=== PATIENT | female | born 1970 | race Caucasian/White ===

== ENCOUNTER → 2017-08-04 | Outpatient (CLI) | payer OTHER ==
--- NOTE | 2017-08-04 14:48 | RAD ---
CT of the abdomen and pelvis without contrast, 08/04/2017: History: Left flank pain Noncontrast scans were obtained through the urinary tract utilizing the renal stone protocol. No intrarenal calculi are identified. The right renal collecting system and right ureter are not dilated. On the left there is mild perinephric and periureteral edema. The left renal collecting system and left ureter are mildly dilated. There is a 5 mm obstructing calculus in the distal left ureter located approximately 2 cm superior to the level of the vesicoureteral junction. The partially filled urinary bladder is unremarkable. The unopacified liver is at the upper limits of normal in size. No hepatic mass or bile duct dilatation is seen. The gallbladder is unremarkable. No pancreatic abnormality is seen. The spleen is of normal size. There is minimal aortoiliac calcific plaquing. No abdominal or pelvic adenopathy is seen. The uterus is surgically absent. The bowel loops are not dilated. The appendix contains a small amount of radiopaque material. There is no evidence of appendiceal inflammation. No free fluid or free air is evident in the abdomen or pelvis. IMPRESSION: 5 mm obstructing distal left ureteral calculus with associated perinephric edema. PQRS Compliance Statement: One or more of the following individualized dose reduction techniques were utilized for this examination: 1. Automated exposure control 2. Adjustment of the mA and/or kV according to patient size 3. Use of iterative reconstruction technique
== END | disposition home or self-care (01) ==
LOC: CT 13:57
PROVIDERS: ATTEND Emergency Medicine
DX: N20.1 Calculus of ureter (principal)
CPT/HCPCS: 74176

== ENCOUNTER → 2017-08-05 | Outpatient (CLI) | payer OTHER ==
--- NOTE | 2017-08-05 08:54 | RAD ---
Indication right-sided abdominal pain and flank pain. A single KUB was obtained. Note is made of the CT examination of the abdomen and pelvis yesterday demonstrating a calculus in the distal left ureter. There is a density in the left pelvis which would be compatible with the calculus seen on the CT examination yesterday. The abdominal gas pattern is normal
== END | disposition home or self-care (01) ==
LOC: RAD 08:22
PROVIDERS: ATTEND Urology
DX: N20.2 Calculus of kidney with calculus of ureter (principal)
CPT/HCPCS: 74000

== ENCOUNTER → 2019-11-20 | Outpatient (CLI) | payer OTHER ==
--- NOTE | 2019-11-20 17:51 | KCIC ---
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 COMPARISON: None FINDINGS: Both lobes of the thyroid are diffusely and markedly heterogeneous. Right thyroid: Measures 7.8 x 2.6 x 2.1 cm intact vascularity is identified at the right lobe. Solid appearing nodule at the upper pole of the right thyroid measures 11 x 8 x 5 mm. Solid appearing nodule at the lower pole measures 14 x 11 x 11 mm. Mild peripheral vascularity about both of these nodules on the right. Isthmus: 7 mm thick and heterogeneous. Left thyroid: Measures 7.6 x 3.1 x 1.8 cm. Large solid appearing nodule at the lower pole measures 4.6 x 2.5 x 2.6 cm. There is some peripheral as well as internal vascularity within this nodule. Intact vascularity is identified within the left lobe of the thyroid. IMPRESSION: Markedly heterogeneous thyroid. Bilateral thyroid masses, with a dominant mass of the left lower pole measuring 4.6 cm. Nature uncertain but potentially malignant. Electronically signed by: Edwin Davila MD (11/20/2019 5:48 PM) [facility]
== END | disposition home or self-care (01) ==
LOC: KCIC US 15:31
PROVIDERS: ATTEND Family Medicine
DX: E04.2 Nontoxic multinodular goiter (principal); E07.89 Other specified disorders of thyroid
CPT/HCPCS: 76536

== ENCOUNTER 2019-12-20 06:02 | Observation (INO) | payer OTHER ==
[~2019-12-20] VITALS: Ht 162.6 cm; Wt 82.0 kg
[2019-12-20] VITALS (11 sets, daily range): BP systolic 107–128; BP diastolic 42–77
[~2019-12-20 06:02] MED LIST: ACET325T9 PO; BISA5TAB4 PO; CETI10TA24 PO; CHOL500062 PO; CRESTOR40 MG PO; DIPH25CA58 PO; GABA300C18 PO; GLUC1CAP48 PO; IBUP-1060 PO; LACT1CAP29 PO; LISI-338 PO; METF750T39 PO; MULT1CAP15 PO; NAPR220C4 PO; TRAM50TA PO; [UNRECOGNIZED DRUG - OTHER] PO
[2019-12-20] MEDS ORDERED: ROCURONIUM 50 MG/5 ML VIAL. ONE (06:22)
[2019-12-20] MEDS ORDERED: fentaNYL PF VIAL 100 MCG/2 ML VIAL ONE ×2 (06:22→10:42)
[2019-12-20] MEDS ORDERED: SUCCINYLCHOLINE 200 MG/10 ML VIAL. ONE (06:22)
[2019-12-20] MEDS ORDERED: DEXAMETHASONE SOD PHOS 4 MG/ML VIAL ONE (06:23)
[2019-12-20] MEDS ORDERED: PROPOFOL 20 ML IV ONE (06:23)
[2019-12-20] MEDS ORDERED: SEVOFLURANE 61 TO 120 MINUTES. IH ONE (06:23)
[2019-12-20] MEDS ORDERED: ONDANSETRON PF 4 MG/2 ML VIAL. ONE (06:23)
[2019-12-20] MEDS ORDERED: LIDOCAINE 2% PF 5 ML VIAL. ONE (06:23)
[2019-12-20] MEDS ORDERED: ceFAZolin 2GM PREMIX 2 GM/50 ML BAG IV ONE (07:00)
[2019-12-20] MEDS ORDERED: fentaNYL PF VIAL 100 MCG/2 ML VIAL IV PRN (07:00)
[2019-12-20] MEDS ORDERED: PROCHLORPERAZINE 10 MG/2 ML VIAL. IV PRN (07:00)
[2019-12-20] MEDS ORDERED: IV RINGERS,LACTATED 1000ML 1,000 ML IV SCH (07:00)
[2019-12-20] MEDS ORDERED: ONDANSETRON PF 4 MG/2 ML VIAL. IV PRN (07:00)
[2019-12-20] MEDS ORDERED: INSULIN LISPRO 100 UNIT/ML 3ML VIAL for OP,RR ONLY. SQ PRN (07:15)
[2019-12-20] MEDS ORDERED: MIDAZOLAM HCL/PF 2 MG/2 ML VIAL. ONE (07:20)
[2019-12-20] MEDS ORDERED: IV NORMAL SALINE 1000ML BAG 1,000 ML IV SCH (10:14)
[2019-12-20] MEDS ORDERED: oxyCODONE/APAP 5/325 1 TAB TABLET PO PRN (10:15)
[2019-12-20] MEDS ORDERED: NALOXONE 0.4 MG/ML VIAL. IV PRN (10:15)
[2019-12-20] MEDS ORDERED: ONDANSETRON PF 4 MG/2 ML VIAL. IVP PRN (10:15)
[2019-12-20] MEDS ORDERED: 0.9 % SODIUM CHLORIDE 10 ML DISP.SYRIN. IV PRN (10:15)
--- NOTE | 2019-12-20 10:25 | PDOC4 ---
Operative Note Operative Note Operative Note: Preoperative Diagnosis: Multinodular thyroid Postoperative Diagnosis: Same Procedure: Total thyroidectomy Surgeon: Antonio Vascular Tech: Rolf Laurent Anesthesia: Gen. EBL: 50 mL Specimen: Total thyroid, stitch at left superior pole; pretracheal lymph node to pathology Drains: None Complications: None Indication: The patient is a 49-year-old female who is referred with multinodular thyroid disease. In particular there is a large 4.6 cm nodule left thyroid lobe. In reviewing options with her she is interested in a complete thyroidectomy. The risks of surgery were discussed which include bleeding, infection, recurrent laryngeal nerve injury, voice changes, hypoparathyroidism, potential need for additional surgery or procedure, anesthetic risk. She understands and would like to proceed. Description: The patient was taken to the operating room and placed supine on the operating table. Gen. anesthesia was performed. The Nims device was assembled. The anterior neck was prepped with ChloraPrep and draped in a standard surgical manner. A collar incision was made 2 finger breast above the sternal notch. Cautery dissection was carried down through the platysma. Subplatysmal flaps were developed superiorly and inferiorly. The Mahorner retractor was used to facilitate exposure. The strap muscle fascia was divided in the midline. We began with mobilization of the left thyroid lobe. The vessels supplying the superior pole were dissected free, ligated with 2-0 Vicryl, and divided. The Harmonic scalpel assisted with mobilization and control of vascular structures. We continued mobilizing the inferior pole which appeared to be the site of the nodule. Blood vessels supplying the inferior pole ligated with 2-0 Vicryl and divided. In the superior location we were able to identify glandular structure consistent with a parathyroid gland which was left intact. The dissection was kept close to the thyroid as it was mobilized in a lateral to medial manner. We then directed our attention to the right thyroid lobe. Similar to before the strap muscles were freed away from the lobe. The superior and inferior pole vessels were dissected free, ligated with 2-0 Vicryl and divided. Smaller vascular attachments were controlled with a Harmonic scalpel. We again identified at least one glandular structure consistent with a parathyroid and this was left in situ. Keeping the dissection close to the gland we freed up any remaining attachments particularly those to the trachea. The thyroid was then fully excised and a stitch marked the left superior pole. The gland was sent to pathology for evaluation. There was a pretracheal node that we elected to harvest. This was done with a Harmonic scalpel and sent to pathology. Hemostasis was good and no other abnormal these were seen. The strap muscle fascia was closed with 3-0 Vicryl. The platysma was approximated with 3-0 Vicryl. The skin was closed with 4 Monocryl. A sterile OpSite dressing was then applied. The patient tolerated the procedure well and was sent to the recovery room in stable condition. At the end of the case all counts were correct. BEN RUIZ MD Dec 20, 2019 10:25
[2019-12-20] MEDS: fentaNYL PF VIAL 100 MCG/2 ML VIAL IV PRN ×2 (11:03→11:08)
[2019-12-20] MEDS: IV 1/2 NORMAL SALINE 1,000 ML IV SCH ×2 (11:40→23:21)
[2019-12-20] MEDS: HYDROmorphone 2 MG/ML VIAL IV PRN ×3 (11:41→21:49)
[2019-12-20] MEDS: oxyCODONE/APAP 5/325 1 TAB TABLET PO PRN ×3 (12:55→23:18)
[2019-12-20] MEDS: GABAPENTIN 300 MG CAPSULE. PO SCH ×2 (15:07→21:49)
[2019-12-20] MEDS ORDERED: diphenhydrAMINE HCL 25 MG CAPSULE PO SCH (21:00)
[2019-12-20] MEDS: CETIRIZINE HCL 10 MG TABLET. PO SCH (21:49)
[2019-12-21 03:33] VITALS: BP 98/44
[2019-12-21] MEDS ORDERED: LEVOTHYROXINE 100 MCG TABLET PO SCH (06:00)
[2019-12-21] MEDS: HYDROmorphone 2 MG/ML VIAL IV PRN (06:44)
[2019-12-21 07:00] VITALS: BP 112/56
[2019-12-21] MEDS ORDERED: metFORMIN XR 500 MG TAB.ER.24H PO SCH (08:00)
[2019-12-21 08:41] VITALS: BP 112/56
[2019-12-21] MEDS: GABAPENTIN 300 MG CAPSULE. PO SCH (08:41)
[2019-12-21] MEDS: CETIRIZINE HCL 10 MG TABLET. PO SCH (08:42)
[2019-12-21] MEDS ORDERED: CHOLECALCIFEROL (VITAMIN D3) 5,000 UNIT CAPSULE PO SCH (09:00)
[2019-12-21] MEDS ORDERED: MULTIVITAMIN with MINERAL TABLET. PO SCH (09:00)
[2019-12-21] MEDS ORDERED: ATORVASTATIN CALCIUM 40 MG TABLET. PO SCH (09:00)
[2019-12-21] MEDS ORDERED: LISINOPRIL 5 MG TABLET. PO SCH (09:00)
[2019-12-21] MEDS ORDERED: LACTOBACILLUS RHAMNOSUS GG 1 CAPSULE. PO SCH (09:00)
[2019-12-21] MEDS ORDERED: NON FORMULARY ITEM (Gluc 2KCL/Chondr/Coll Hy/Hy Ac (Glucosamine & Chondroitin Cap) 1 EACH) PO SCH (09:00)
--- NOTE | 2019-12-21 10:19 | NUR ---
SW following. Discussed with RN, pt from home. RN advised no SW needs and anticipates possible discharge home today with self care.
--- NOTE | 2019-12-21 11:16 | PDOC ---
DUNG CADE DRAWER LINER 12/21/19 1116: SURGICAL PROGRESS NOTE Subjective voice strong eating pain managed Vital Signs Vital Signs Date Time Temp Pulse Resp B/P (MAP) Pulse Ox O2 Delivery O2 Flow Rate FiO2 12/21/19 09:59 16 Room Air 12/21/19 08:41 72 112/56 12/21/19 07:00 98.0 92 98.0 12/20/19 15:10 2.0 I&O Intake and Output 12/21/19 07:00 Intake Total 1310 ml Output Total 100 ml Balance 1210 ml Intake Oral 660 ml IV Total 650 ml Output Estimated Blood Loss 100 ml # Voids 4 General: Alert, Oriented X3, Cooperative HEENT: Other (incision dressing intact, no significant swelling ) Labs Laboratory Tests Test 12/20/19 06:56 12/20/19 10:21 12/21/19 03:15 Glucose (Fingerstick) 78 mg/dL (70-99) 115 mg/dL (70-99) Calcium Level 8.5 mg/dL (8.5-10.1) Laboratory Tests Test 12/21/19 03:15 Calcium Level 8.5 mg/dL (8.5-10.1) Problem List s/p total thyroidectomy ca normal dc home e-scribed narcotic and synthroid to pharmacy FU 1 week BEN RUIZ MD 12/21/19 1236: SURGICAL PROGRESS NOTE Assessment/Plan Agree with above DUNG CADE APRN Dec 21, 2019 11:16 BEN RUIZ MD Dec 21, 2019 12:36
[2019-12-21] MEDS ORDERED: LEVO100T PO (11:21)
[2019-12-21] MEDS ORDERED: OXYC1TAB15 PO (11:21)
--- NOTE | 2019-12-21 11:23 | DISCH ---
DISCHARGE INSTRUCTIONS Condition on Discharge Condition on Discharge: Stable Activity After Discharge Activity Instructions for Disc: Resume previous activity, Activity as tolerated Bathing Instructions: Shower-keep dressing dry Driving Instructions after Dis: Do not drive (while taking pain medication) Diet after Discharge Diet after Discharge: Regular Wound Incision Care Wound/Incision Care: Do not change dressing Contacting the after DC Call your doctor for: Concerns you may have Follow-Up Follow up with: Dr Alvarez 1 week, call to schedule [phone] DUNG CADE APRN Dec 21, 2019 11:23
--- NOTE | 2019-12-21 13:04 | NUR ---
Discharge instructions and belongings reviewed with patient, verbalized understanding. Patient was escorted out via wheelchair by Ava HORVATH accompanied by her daughter and .
--- NOTE | 2019-12-22 18:06 | PATHOLOGY ---
[facility] Accession Number: [id number] . 01 Material submitted: . PART A: thyroid gland - THYROID, STITCH AT LEFT UPPER POLE PART B: lymph node - PRE-TRACHEAL LYMPH NODE . 01 Clinical history: . Multinodular thyroid . 02 Diagnosis: A. 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 - Nodular Vipul's thyroiditis, right and left thyroid lobes. - Adenomatous nodules, small, right and left thyroid lobes - Single left parathyroid gland identified. . B. Lymph node, pretracheal lymph node, excisional biopsy: - Reactive changes - negative for tumor. LBQ 12/22/2019 1654 Local . 02 Comment: There is no evidence of malignancy. The case is also examined by Dr. Alfred, who concurs with the diagnosis. (JPM/db; 12/21/2019) . 02 Electronically signed: . Brendan Chamberlain MD, Pathologist NPI- [id number] . 01 Gross description: . A. The specimen is received in formalin, labeled "Nimo Tadeo, thyroid, stitch at left upper pole". Received is a 51 g total thyroidectomy specimen with a suture designating the left upper pole. The left lobe measures 6.5 x 3.5 x 3.0 cm. The right lobe measures 6.5 x 2.8 x 2.5 cm. The isthmus measures 2.5 x 1.7 x 0.6 cm. The capsule is disrupted. The specimen is inked as follows: Left anterior-green, right anterior-blue, posterior-black. Sectioning through the left lobe reveals several unencapsulated pink-schultz, fleshy nodules ranging in size from 0.7 to 3.9 cm in maximum dimensions. The remainder of the lobe is comprised of normal red-brown thyroid parenchyma, which encompasses approximately 25% of the lobe. Sectioning through the right lobe reveals multiple pale schultz to pink-schultz fleshy nodules ranging in size from 0.3 to 1.2 cm in maximum dimensions. Normal thyroid parenchyma is not grossly distinct. The specimen is submitted representatively as follows: . A1-A6 alternating sections of left lobe submitted from superior to inferior aspects A7-A12 alternating sections of right lobe submitted from superior to inferior aspects. . B. The specimen is received in formalin, labeled "Nimo Tadeo, pretracheal lymph node". Received is a segment of pink-schultz lobulated tissue measuring 1.1 x 0.6 x 0.4 cm in greatest dimensions. Sectioning reveals pink-schultz, lobulated cut surfaces, consistent with a single lymph node. The specimen is bisected and entirely submitted in cassette B1. (CAA; 12/20/2019) QA/QAC 12/21/2019 1642 Local . 02 Pathologist provided ICD-10: D34, E06.3 . 02 CPT . 145606, [id number] Specimen Comment: A courtesy copy of this report has been sent to [phone], [phone] Specimen Comment: [id number] Specimen Comment: Report sent to / DR ROSAS Performed at: 01 [facility] [address] [facility] [address], [place] [id number] MD Juan Barksdale MD Phone: [phone] Performed at: 02 [facility] [address] [place], [place] [id number] MD Brendan Chamberlain MD Phone: [phone]
== END 2019-12-21 13:05 | disposition home or self-care (01) ==
LOC: SURG 06:02 → 4 NORTH 10:14
PROVIDERS: ADMIT Surgery; ATTEND Surgery
DX: E04.2 Nontoxic multinodular goiter (principal)
CPT/HCPCS: 36415; 60240; 82310; 82962; 88305; 88307; 96374; 96376; A7015; G0378; G0379; J0330; J0696; J1100; J1170; J2001; J2250; J2405; J2704; J3010; Q0163